=== PATIENT | female | born 1995 | race Caucasian/White ===

== ENCOUNTER → 2017-10-04 | Outpatient (CLI) | payer MEDICAID ==
[~2017-10-04] MED LIST: ONDA-42 SL; PNV91TAB3 PO; PREN-107 PO
--- NOTE | 2017-10-04 16:51 | Diagnostic Imaging Report ---
PROCEDURE: US OB SINGLE FETUS <14 WKS. TECHNIQUE: Multiple real-time grayscale images were obtained over the gravid uterus in various projections. INDICATION: Uncertain dates. FINDINGS: There are no prior studies available for comparison. There is a gestational sac within the uterus containing a single live embryo. Embryonic heart motion is noted and a rate of 139 bpm is recorded. The crown-rump length suggests the estimated gestational age is 7 weeks 4 days +/- one-half week. There are no obvious embryonic abnormalities identified. The amniotic fluid volume is within normal limits. At this time, it is not certain where the placenta will develop. Neither ovary is identified. There is no pelvic mass or free fluid collection noted, however. IMPRESSION: 1. There is a single live intrauterine of approximately 7 weeks 4 days gestation +/- one-half week. The EDC is May 19, 2018. 2. There are no obvious embryonic abnormalities identified. 3. There is no pelvic mass or free fluid collection evident. Dictated by: Dictated on workstation # [id number]
== END ==
LOC: RAD 13:08
PROVIDERS: ATTEND Family Medicine
DX: Z34.81 Encounter for supervision of other normal pregnancy, first trimester (principal); Z3A.01 Less than 8 weeks gestation of pregnancy
CPT/HCPCS: 76801

== ENCOUNTER 2019-01-18 18:54 | Emergency (ER) | payer MEDICAID ==
[~2019-01-18] VITALS: Ht 177.8 cm; Wt 90.9 kg
--- NOTE | 2019-01-18 19:11 | ED GU-Female ---
General Stated Complaint: N/V/ABNORMAL VAGINAL BLEEDING/PELVIC PAIN Source: patient Exam Limitations: no limitations History of Present Illness Date Seen by Provider: Jan 18, 2019 Time Seen by Provider: 18:54 Initial Comments The patient presents to ER by private conveyance with chief complaint of low pelvic bilateral abdominal pain nausea and vomiting for the past 2 days. Mild dysuria. Today however when she was walking out of a grocery store she had a fine of fluids lasting about 20 seconds. She said it was bloody tinged then. She's not sure if it was urine or from the vagina. She has had 3 C-sections in the past with the last one having a tubal ligation. She does not know of any fever. She's not taken anything for the pain or nausea. She has no significant medical history. She is not in a monogamous relationship and has no history of STDs. She has not noticed any discharge or foul odor. Allergies and Home Medications Allergies Coded Allergies: No Known Drug Allergies (Unverified , 03/23/14) Patient Home Medication List Home Medication List Reviewed: Yes Review of Systems Review of Systems Constitutional: No chills, No diaphoresis EENTM: No ear discharge, No ear pain Respiratory: No cough, No short of breath Cardiovascular: No chest pain, No edema Gastrointestinal: No abdominal pain, No constipation; nausea, vomiting Genitourinary: see HPI, burning; denies discharge; dysuria Musculoskeletal: back pain (low back bilateral) Past Qeterlb-Ynisad-Nljgvg Hx Patient Social History Alcohol Use: Denies Use Recreational Drug Use: No Smoking Status: Never a Smoker Recent Foreign Travel: No Contact w/Someone Who Travel: No Immunizations Up To Date Date of Influenza Vaccine: Jan 02, 2014 Seasonal Allergies Seasonal Allergies: No Past Medical History Gallbladder Reproductive Disorders: No Sexually Transmitted Disease: No Family Medical History No Pertinent Family Hx Physical Exam Vital Signs Vital Signs - First Documented 01/18/19 19:07 Temp 37.7 Pulse 95 Resp 16 B/P (MAP) 139/93 (108) Pulse Ox 98 O2 Delivery Room Air Capillary Refill : Height, Weight, BMI Height: 5'10" Weight: 215lbs. oz. 97.895283hg; BMI Method:Stated General Appearance: WD/WN, no apparent distress HEENT: PERRL/EOMI, pharynx normal Cardiovascular: normal peripheral pulses (95), regular rate, rhythm Respiratory: lungs clear, normal breath sounds, no respiratory distress, no accessory muscle use Gastrointestinal: normal bowel sounds, soft, tenderness (low pelvis bilateral and suprapubic tenderness to palpation. No mesenteric or psoas signs) Back: normal inspection, no CVA tenderness Neurologic/Psychiatric: alert, normal mood/affect, oriented x 3 Progress/Results/Core Measures Suspected Sepsis SIRS Temperature: Pulse: Respiratory Rate: Blood Pressure / Mean: Results/Orders Lab Results Laboratory Tests Test 01/18/19 19:12 Range/Units Urine Color YELLOW Urine Clarity CLEAR Urine pH 5 5-9 Urine Specific [place] 1.025 H 1.016-1.022 Urine Protein 2+ H NEGATIVE Urine Glucose (UA) NEGATIVE NEGATIVE Urine Ketones NEGATIVE NEGATIVE Urine Nitrite NEGATIVE NEGATIVE Urine Bilirubin NEGATIVE NEGATIVE Urine Urobilinogen NORMAL NORMAL MG/DL Urine Leukocyte Esterase 2+ H NEGATIVE Urine RBC (Auto) 3+ H NEGATIVE Urine RBC 10-25 H /HPF Urine WBC 10-25 H /HPF Urine Squamous Epithelial Cells 5-10 /HPF Urine Crystals NONE /LPF Urine Bacteria TRACE /HPF Urine Casts NONE /LPF Urine Mucus SMALL H /LPF Urine Culture Indicated YES My Orders Orders - JEREL ANDRADE Ua Culture If Indicated (01/18/19 19:07) Urine Bedside (01/18/19 19:07) Urine Culture (01/18/19 19:12) Vital Signs/I&O 01/18/19 19:07 Temp 37.7 Pulse 95 Resp 16 B/P (MAP) 139/93 (108) Pulse Ox 98 O2 Delivery Room Air Capillary Refill : Progress Note #1: Time: 19:10 Progress Note Suspect UTI with urinary incontinence. If urinalysis is inconclusive for a cedric terial infection then we will do a wet prep and offer STD testing. It is not lateralizing Kidney stone much less likely. Ectopic less likely as well. Bedside . Progress Note #2: Time: 19:41 Progress Note Discussed the likelihood of a urinary tract infection however could explain her symptoms versus pelvic inflammatory disease. 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 She says she would prefer not to do the testing and would rather just take the antibiotics at this time. Departure Impression Primary Impression: Urinary tract infection Qualified Codes: N30.01 - Acute cystitis with hematuria Disposition: HOME, SELF-CARE Condition: Stable Departure-Patient Inst. Decision time for Depature: 19:42 Referrals: FREDRICK MCCARTY MD (PCP/Family) Primary Care Physician Patient Instructions: Urinary Tract Infection, Adult (DC) Add. Discharge Instructions: Take the Keflex one capsule twice a day with food for the next week. Drink plenty of fluids. Tylenol 1000 g every 8 hours as needed for pain. Ibuprofen 800 mg every 8 hours as needed for pain or naproxen 1-2 tablets twice a day as needed for pain. Expect some relief by 2-3 days if not follow up with a doctor. If you have nausea again you may use Zofran 1 tablet every 6 hours under the tongue as needed. Scripts Cephalexin (Keflex) 500 Mg Capsule 500 MG PO BID for 7 Days, #14 CAP 0 Refills Prov: JEREL ANDRADE 01/18/19 Ondansetron (Ondansetron Odt) 4 Mg Tab.rapdis 4 MG PO Q6H PRN for NAUSEA/VOMITING, #8 TAB 0 Refills Prov: JEREL ANDRADE 01/18/19 JEREL ANDRADE Jan 18, 2019 19:11
[2019-01-18 19:20] LABS: BILIRUBIN,URINE NEGATIVE (NEGATIVE); CLARITY,URINE CLEAR; COLOR,URINE YELLOW; GLUCOSE, URINE (UA) NEGATIVE (NEGATIVE); KETONES,URINE NEGATIVE (NEGATIVE); LEUKOCYTE ESTERASE ,URINE 2+ (NEGATIVE); NITRITE,URINE NEGATIVE (NEGATIVE); PH,URINE 5 (5-9); PROTEIN,URINE 2+ (NEGATIVE)
[2019-01-18 19:29] LABS: BACTERIA,URINE TRACE /HPF
[2019-01-18] MEDS ORDERED: ONDA4TAB11 PO (19:44)
[2019-01-18] MEDS ORDERED: CEPH-507 PO (19:44)
[2019-01-18] MEDS ORDERED: IBUPROFEN 800 MG (MOTRIN) TAB PO ONE (19:45)
[2019-01-18] MEDS ORDERED: CEPHALEXIN 250 MG (KEFLEX) CAP PO ONE (19:45)
[2019-01-18 19:59] VITALS: BP 139/93
== END 2019-01-18 20:00 | disposition home or self-care (01) ==
LOC: EDUNIT# 18:54 → ER 18:55
DX: N39.0 Urinary tract infection, site not specified (principal)
CPT/HCPCS: 81000; 84703; 87088; 99283